=== PATIENT | male | born 1955 | race American Indian/Alaskan Native ===

== ENCOUNTER 2016-06-08 09:27 | Emergency (ER) | payer MEDICARE ==
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
[2016-06-08] MEDS ORDERED: FLEXERIL PO ONE (15:15)
[2016-06-08] MEDS ORDERED: MOTRIN PO ONE (15:15)
[2016-06-08 15:33] VITALS: BP 132/81
== END 2016-06-08 15:31 | disposition home or self-care (01) ==
LOC: ED 09:27
DX: M23.8X2 Other internal derangements of left knee (principal); M54.5 Low back pain; G89.29 Other chronic pain; I10 Essential (primary) hypertension; F17.200 Nicotine dependence, unspecified, uncomplicated
CPT/HCPCS: 99282

== ENCOUNTER 2018-12-13 13:42 | Emergency (ER) | payer MEDICARE ==
[2018-12-13 13:53] VITALS: BP 158/95
[2018-12-13 14:55] LABS: Basophils % (Auto) 0.4 % (0.0-1.8); Eosinophils % (Auto) 0.6 % (0.0-4.3); Hematocrit 49.2 % (35.5-45.6); Hemoglobin 16.6 gm/dl (11.8-15.2); Mean Corpuscular HGB Conc 34 % (32-34); Mean Corpuscular Volume 95 fl (84-94); Monocytes # (Auto) 0.5 K/mm3 (0.0-0.8); Monocytes % (Auto) 6.7 % (0.0-7.3); Platelet Count 248 K/mm3 (140-440); Red Blood Count 5.19 M/mm3 (3.65-5.03); Red Cell Distribution Width 14.5 % (13.2-15.2)
[2018-12-13 15:13] LABS: Bacteria,Urine 1+ /HPF (Negative); Bilirubin,Urine NEG (Negative); Blood,Urine NEG (Negative); Color,Urine Yellow (Yellow); Mucus,Urine FEW /HPF; Urobilinogen,Urine < 2.0 mg/dL (<2.0)
[2018-12-13 15:15] LABS: Alanine Aminotransferase 15 units/L (7-56); Albumin 4.1 g/dL (3.9-5); BUN/Creatinine Ratio 6; Blood Urea Nitrogen 7 mg/dL (9-20); Calcium 9.7 mg/dL (8.4-10.2); Hemolysis Index 15
[2018-12-13] MEDS ORDERED: ZOFRAN IV ONE (17:28)
[2018-12-13] MEDS ORDERED: TORADOL IV ONE (17:28)
[2018-12-13] MEDS ORDERED: NACL 0.9% 1000 ML 1,000 ML IV ONE (17:29)
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
--- NOTE | 2018-12-13 18:50 | Cat Scan Report ---
CT abdomen pelvis wo con INDICATION: right flank pain. TECHNIQUE: All CT scans at this location are performed using CT dose reduction for ALARA by means of automated e xposure control. COMPARISON: None available. FINDINGS: Metallic foreign body in the peripheral left lower lobe parenchyma. Liver, gallbladder, spleen, kidne ys and adrenals are negative on this noncontrast exam. Low-attenuation lesion in the lower pole of th e left kidney is probably cyst. Pancreas is not well demonstrated. There are tiny calcifications scat tered in the region of the pancreas, but I see no obvious abnormal mass or inflammation. Abdominal ao rta is atherosclerotic but normal in size. Pelvis Urinary bladder appears grossly negative. Prostate is slightly enlarged. Appendix is thought to be id entified and unremarkable. No appreciable free fluid. No acute skeletal lesions. IMPRESSION: 1. Exam is difficult because of the patient's very thin body habitus and the lack of IV or oral contr ast. 2. No definite acute abnormality. Signer Name: David Martin MD Signed: 12/13/2018 6:46 PM Workstation Name: [id number]
== END 2018-12-13 19:54 | disposition home or self-care (01) ==
LOC: ED 13:42
DX: M54.5 Low back pain (principal); G89.29 Other chronic pain; R10.9 Unspecified abdominal pain; I10 Essential (primary) hypertension; R11.2 Nausea with vomiting, unspecified; F17.200 Nicotine dependence, unspecified, uncomplicated; Z79.899 Other long term (current) drug therapy
CPT/HCPCS: 36415; 74176; 80053; 81001; 83690; 85025; 96361; 96374; 96375; 99284; J1885; J2405; J7030

== ENCOUNTER 2018-12-21 21:25 | Emergency (ER) | payer MEDICARE ==
[2018-12-22 01:33] LABS: Basophils # (Auto) 0.1 K/mm3 (0.0-0.1); Eosinophils % (Auto) 0.2 % (0.0-4.3); Monocytes # (Auto) 0.6 K/mm3 (0.0-0.8); Monocytes % (Auto) 6.1 % (0.0-7.3)
[2018-12-22] MEDS ORDERED: SODIUM CHLORIDE 0.9% 1000 ML 1,000 ML IV ONE (01:35)
[2018-12-22] MEDS ORDERED: ONDANSETRON 4 MG/2 ML INJ IV ONE ×2 (01:35→03:45)
[2018-12-22] MEDS ORDERED: levETIRAcetam 1000 MG/NS 0.75% 1,000 MG/100 ML BAG IV ONE (01:35)
[2018-12-22] MEDS ORDERED: HYDROmorphone 1 MG/1 ML INJ IV ONE ×2 (01:35→04:37)
[2018-12-22 01:50] LABS: BUN/Creatinine Ratio 7; Blood Urea Nitrogen 8 mg/dL (9-20); Calcium 9.5 mg/dL (8.4-10.2); Hemolysis Index 13
[2018-12-22 01:56] LABS: Basophils % (Auto) 1.2 % (0.0-1.8); Hematocrit 49.5 % (35.5-45.6); Hemoglobin 17.1 gm/dl (11.8-15.2); Lymphocytes # (Auto) 1.1 K/mm3 (1.2-5.4); Lymphocytes % (Auto) 11.7 % (13.4-35.0); Mean Corpuscular HGB Conc 35 % (32-34); Mean Corpuscular Volume 94 fl (84-94); Platelet Count 377 K/mm3 (140-440); Red Blood Count 5.27 M/mm3 (3.65-5.03); Red Cell Distribution Width 14.4 % (13.2-15.2)
[2018-12-22 02:14] LABS: Bilirubin,Urine NEG (Negative); Blood,Urine NEG (Negative); Color,Urine Yellow (Yellow); Hyaline Casts,Urine 1 /LPF; Mucus,Urine FEW /HPF
[2018-12-22 02:15] LABS: Amphetamine Screen,Urine PRESUMPTIVE NEGATIVE; Benzodiazepines Screen,Urine PRESUMPTIVE NEGATIVE; Cannabinoid Screen,Urine PRESUMPTIVE NEGATIVE; Methadone Screen,Urine PRESUMPTIVE NEGATIVE; Opiate Screen,Urine PRESUMPTIVE NEGATIVE
[2018-12-22 02:17] LABS: Alanine Aminotransferase 17 units/L (7-56); Albumin 4.5 g/dL (3.9-5)
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
[2018-12-22 02:44] LABS: Bilirubin,Direct < 0.2 mg/dL (0-0.2)
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
[2018-12-22 03:11] LABS: Cocaine Screen,Urine PRESUMPTIVE POSITIVE
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
[2018-12-22] MEDS ORDERED: KETOROLAC 30 MG/1 ML INJ IV ONE (04:37)
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
[2018-12-22 05:21] VITALS: BP 145/103
[2018-12-22] MEDS ORDERED: metroNIDAZOLE 500 MG TAB PO ONE (05:44)
[2018-12-22] MEDS ORDERED: levoFLOXacin 750 MG TAB PO ONE (05:44)
== END 2018-12-22 07:16 | disposition home or self-care (01) ==
LOC: ED 21:25
DX: S30.1XXA Contusion of abdominal wall, initial encounter (principal); K57.10 Diverticulosis of small intestine without perforation or abscess without bleeding; R56.9 Unspecified convulsions; F14.10 Cocaine abuse, uncomplicated; I10 Essential (primary) hypertension; F17.200 Nicotine dependence, unspecified, uncomplicated; Z79.899 Other long term (current) drug therapy
CPT/HCPCS: 36415; 70450; 71101; 74019; 74177; 80048; 80076; 80307; 81001; 83690; 83735; 85025; 96365; 96375; 96376; 99285; J1170; J1885; J1953; J2405; J7030; Q9967

== ENCOUNTER 2021-12-01 12:53 | Emergency (ER) | payer MEDICARE ==
[2021-12-01] MEDS ORDERED: KETOROLAC 30 MG/1 ML INJ IV ONE (15:57)
[2021-12-01] MEDS ORDERED: SODIUM CHLORIDE 0.9% 1000 ML 1,000 ML IV ONE ×2 (15:57→19:06)
[2021-12-01] MEDS ORDERED: ONDANSETRON 4 MG/2 ML INJ IV ONE (15:58)
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
[2021-12-01 17:40] LABS: Basophils % (Auto) 0.5 % (0.0-1.8); Eosinophils # (Auto) 0.1 K/mm3 (0.0-0.4); Eosinophils % (Auto) 0.7 % (0.0-4.3); Hematocrit 44.7 % (35.5-45.6); Lymphocytes # (Auto) 0.7 K/mm3 (1.2-5.4); Lymphocytes % (Auto) 10.2 % (13.4-35.0); Mean Corpuscular HGB Conc 34 % (32-34); Mean Corpuscular Volume 97 fl (84-94); Monocytes # (Auto) 0.8 K/mm3 (0.0-0.8); Monocytes % (Auto) 11.5 % (0.0-7.3); Platelet Count 126 K/mm3 (140-440); Red Blood Count 4.62 M/mm3 (3.65-5.03); Red Cell Distribution Width 14.5 % (13.2-15.2)
[2021-12-01 17:52] LABS: Alanine Aminotransferase 14 units/L (7-56); Albumin 4.1 g/dL (3.9-5); BUN/Creatinine Ratio 13; Blood Urea Nitrogen 16 mg/dL (9-20); Calcium 9.1 mg/dL (8.4-10.2); Hemolysis Index 14
[2021-12-01 17:53] LABS: C-Reactive Protein 1.9 mg/dL (0.00-1.30)
[2021-12-01] MEDS ORDERED: MORPHINE 2 MG/1 ML INJ IV ONE (21:03)
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
[2021-12-02] MEDS ORDERED: HYDROcodone/ACETAMINOPHEN 5-325 MG TAB PO ONE (00:42)
[2021-12-02] MEDS ORDERED: LACTATED RINGERS 1000 ML IV SOLN IV SCH (00:45)
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
[2021-12-02 05:58] VITALS: BP 139/87
== END 2021-12-02 05:55 | disposition home or self-care (01) ==
LOC: ED 12:53
DX: S32.592A Other specified fracture of left pubis, initial encounter for closed fracture (principal); M25.562 Pain in left knee; M62.82 Rhabdomyolysis; X58.XXXA Exposure to other specified factors, initial encounter; Y93.89 Activity, other specified; Y92.89 Other specified places as the place of occurrence of the external cause; Y99.8 Other external cause status
CPT/HCPCS: 36415; 72100; 73502; 73560; 80053; 82550; 85025; 86140; 96361; 96374; 96375; 99284; J1885; J2270; J2405; J7030; J7120